=== PATIENT | male | born 1960 | race Caucasian/White ===

== ENCOUNTER → 2016-09-19 | Outpatient (CLI) | payer OTHER ==
[2016-09-19 08:21] LABS: URINE TOTAL PROTEIN 199 mg/dl
== END ==
LOC: LAB 07:25
PROVIDERS: Internal Medicine Nephrology
DX: N05.2 Unspecified nephritic syndrome with diffuse membranous glomerulonephritis (principal)
CPT/HCPCS: 36415; 80053; 80197; 84156

== ENCOUNTER → 2017-03-04 | Outpatient (CLI) | payer OTHER | LOC: OPSV 08:38 → LAB 08:38 | DX: N05.2 Unspecified nephritic syndrome with diffuse membranous glomerulonephritis (principal) | CPT/HCPCS: 36415; 80197 ==

== ENCOUNTER → 2020-10-01 | Outpatient (CLI) | payer OTHER | LOC: LAB 16:51 | PROVIDERS: Internal Medicine Nephrology | DX: N05.2 Unspecified nephritic syndrome with diffuse membranous glomerulonephritis (principal) | CPT/HCPCS: 36415; 80053; 82570; 84156 ==

== ENCOUNTER → 2020-11-19 | Outpatient (CLI) | payer OTHER ==
[2020-11-19 16:54] LABS: URINE TOTAL PROTEIN 192 mg/dl
== END ==
LOC: LAB 15:51
PROVIDERS: Internal Medicine Nephrology
DX: N05.2 Unspecified nephritic syndrome with diffuse membranous glomerulonephritis (principal)
CPT/HCPCS: 36415; 80053; 84156

== ENCOUNTER → 2021-01-18 | Outpatient (CLI) | payer OTHER | LOC: US 13:03 | DX: N18.30 Chronic kidney disease, stage 3 unspecified (principal) ==

== ENCOUNTER → 2021-01-28 | Outpatient (CLI) | payer OTHER ==
[2021-01-28 18:15] LABS: URINE TOTAL PROTEIN 186 mg/dl
== END ==
LOC: LAB 16:18
PROVIDERS: Internal Medicine Nephrology
DX: N05.2 Unspecified nephritic syndrome with diffuse membranous glomerulonephritis (principal)
CPT/HCPCS: 36415; 80053; 81001; 84156

== ENCOUNTER → 2021-03-05 | Outpatient (CLI) | payer OTHER ==
[2021-03-07 07:09] LABS: % FREE PSA 45.7 % (.); PROSTATE SPECIFIC AG, SERUM 0.7 ng/mL (0.0-4.0); PSA, FREE 0.32 ng/mL
== END ==
LOC: LAB 16:30
PROVIDERS: Internal Medicine Nephrology
DX: N40.0 Benign prostatic hyperplasia without lower urinary tract symptoms (principal); N05.2 Unspecified nephritic syndrome with diffuse membranous glomerulonephritis
CPT/HCPCS: 80048; 84153; 84154

== ENCOUNTER → 2021-04-02 | Outpatient (CLI) | payer OTHER | LOC: LAB 15:40 | PROVIDERS: Internal Medicine Nephrology | DX: I12.9 Hypertensive chronic kidney disease with stage 1 through stage 4 chronic kidney disease, or unspecified chronic kidney disease (principal); N18.30 Chronic kidney disease, stage 3 unspecified; E03.9 Hypothyroidism, unspecified | CPT/HCPCS: 36415; 80053; 82570; 84156 ==

== ENCOUNTER → 2021-07-09 | Outpatient (CLI) | payer OTHER ==
[2021-07-10 08:13] LABS: A/G RATIO 1.7 (1.2-2.2); BILIRUBIN, TOTAL 0.6 mg/dL (0.0-1.2); CALCIUM, SERUM 9.4 mg/dL (8.6-10.2); CREATININE, SERUM 1.63 mg/dL (0.76-1.27); GLOBULIN, TOTAL 2.3 g/dL (1.5-4.5); POTASSIUM, SERUM 4.8 mmol/L (3.5-5.2); PROTEIN, TOTAL, SERUM 6.1 g/dL (6.0-8.5)
== END ==
LOC: LAB 11:15
PROVIDERS: Internal Medicine Nephrology
DX: N05.2 Unspecified nephritic syndrome with diffuse membranous glomerulonephritis (principal)
CPT/HCPCS: 36415; 80053; 82570; 84156

== ENCOUNTER → 2021-10-07 | Outpatient (CLI) | payer OTHER | LOC: LAB 16:54 | PROVIDERS: Internal Medicine Nephrology | DX: N18.32 Chronic kidney disease, stage 3b (principal) | CPT/HCPCS: 36415; 80053; 81001; 82570; 84156 ==

== ENCOUNTER → 2022-02-17 | Outpatient (CLI) | payer OTHER | LOC: LAB 16:12 | PROVIDERS: Internal Medicine Nephrology | DX: N05.2 Unspecified nephritic syndrome with diffuse membranous glomerulonephritis (principal) | CPT/HCPCS: 36415; 80053; 81001; 82306; 82570; 83970; 84100; 84156 ==